=== PATIENT | female | born 1940 | race Caucasian/White ===

== ENCOUNTER 2023-03-05 22:57 | Inpatient (IN) | payer BC ==
[~2023-03-05 22:57] MED LIST: SIMV-8 PO
[2023-03-06 01:03] VITALS: BP 136/70
[2023-03-06] MEDS ORDERED: MORPHINE SULFATE INJ 2 MG/ml SYRG IV PRN (01:15)
[2023-03-06] MEDS ORDERED: DOCUSATE SOD 100 MG CAP PO PRN (01:15)
[2023-03-06] MEDS ORDERED: ONDANSETRON HCL 4 MG/2 ML VIAL IV PRN (01:15)
[2023-03-06] MEDS ORDERED: ATORVASTATIN 20 MG TAB PO ONE (01:15)
[2023-03-06] MEDS ORDERED: NITROGLYCERIN 0.4 MG SL TAB SL PRN (01:15)
[2023-03-06] MEDS ORDERED: IBUPROFEN 600 MG TAB PO ONE (01:15)
[2023-03-06] MEDS ORDERED: LABETALOL HCL 5 MG/ML 4ML SYRINGE IV PRN (01:45)
[2023-03-06 04:35] VITALS: BP 161/74
[2023-03-06 06:16] LABS: Basophils # (auto) 0 10 ^3/uL (0-0.2); Basophils % (auto) 0.7 % (0.0-2.0); Eosinophils # (auto) 0.2 10 ^3/uL (0-0.8); Eosinophils % (auto) 4.2 % (0.0-7.0); Hematocrit 33.9 % (36.0-46.0); Hemoglobin 11.9 g/dL (12.2-16.2); Lymphocytes # (auto) 1.3 10 ^3/uL (0.4-5.4); Lymphocytes % (auto) 22.9 % (10.0-50.0); Mean Corpuscular Hemoglobin 33.7 pg (28.0-32.0); Mean Corpuscular Hgb Conc. 35.2 g/dL (32.0-36.0); Mean Corpuscular Volume 95.7 fL (80.0-100.0); Monocytes # (auto) 0.7 10 ^3/uL (0-1.3); Monocytes % (auto) 11.7 % (0.0-12.0); Neutrophils # (auto) 3.4 10 ^3/uL (1.6-8.6); Neutrophils % (auto) 60.5 % (37.0-80.0); Nucleated Red Blood Cells % 0.1 %; Red Blood Cells 3.54 10^6/uL (4.0-5.20); Red Cell Distribution Width 13.6 % (11.8-14.3); White Blood Cell 5.6 10^3/uL (4.4-10.8)
[2023-03-06 06:35] LABS: BUN/Creatinine Ratio 26.2 (10.0-20.0); Calcium 8.8 mg/dL (8.5-10.1); Potassium 3.5 mmol/L (3.5-5.1)
[2023-03-06 08:30] VITALS: BP 146/72
[2023-03-06] MEDS ORDERED: ASPirin 81 mg TAB PO SCH (10:00)
[2023-03-06] MEDS: ACETAMINOPHEN 325 MG TAB PO PRN ×2 (10:11→21:10)
[2023-03-06 12:30] VITALS: BP 144/70
[2023-03-06 17:18] VITALS: BP 150/73
[2023-03-06 18:28] LABS: Free T3 3.71 pg/mL (2.3-4.2)
[2023-03-06 18:29] LABS: Free T4 (Free Thyroxine) 1.33 ng/dL (0.89-1.76)
[2023-03-06] MEDS ORDERED: CYCL0.05 EACHEYE (19:19)
[2023-03-06] MEDS ORDERED: DORZ1SOL6 OP (19:19)
[2023-03-06 21:25] LABS: Urine Bacteria NONE SEEN /hpf (None Seen); Urine Blood Negative /uL (Negative); Urine Specific Gravity 1.023 (1.001-1.035); Urine WBC 2 /hpf (0 - 5)
[2023-03-06] MEDS ORDERED: ATORVASTATIN 20 MG TAB PO SCH (22:00)
[2023-03-06 23:26] VITALS: BP 127/73
[2023-03-07 04:59] VITALS: BP 138/79
[2023-03-07 09:00] VITALS: BP 129/68
[2023-03-07 13:06] VITALS: BP 154/60
[2023-03-07 15:34] VITALS: BP 129/68
== END 2023-03-07 16:35 | disposition home or self-care (01) | DRG 312 ==
LOC: CENTRAL 23:40 → TELE-CENTR 03-06 02:10
PROVIDERS: ADMIT Internal Medicine; ATTEND Hospitalist
DX: R55 Syncope and collapse (principal); M48.54XA Collapsed vertebra, not elsewhere classified, thoracic region, initial encounter for fracture; D64.9 Anemia, unspecified; E78.5 Hyperlipidemia, unspecified; R00.1 Bradycardia, unspecified; F07.81 Postconcussional syndrome; R29.810 Facial weakness; Z79.899 Other long term (current) drug therapy; Z82.49 Family history of ischemic heart disease and other diseases of the circulatory system; Z86.73 Personal history of transient ischemic attack (TIA), and cerebral infarction without residual deficits; Z80.3 Family history of malignant neoplasm of breast
CPT/HCPCS: 36415; 70551; 73700; 80048; 81001; 84439; 84443; 84481; 85025; 87081; 87086; 93306; 93886; 95819; 97110; 97116; 97163; 97530; G0378

== ENCOUNTER 2023-05-25 12:24 | Emergency (ER) | payer BC ==
[~2023-05-25] VITALS: Ht 152.4 cm; Wt 49.7 kg
[~2023-05-25 12:24] MED LIST changes: +CYCL0.05 EACHEYE; +DORZ1SOL6 OP; -SIMV-8 PO; +SIMV20TA20 PO
[2023-05-25 14:45] VITALS: BP 129/70
[2023-05-25 15:35] LABS: Basophils # (auto) 0.1 10 ^3/uL (0-0.2); Basophils % (auto) 1.5 % (0.0-2.0); Eosinophils # (auto) 0.3 10 ^3/uL (0-0.8); Eosinophils % (auto) 6.8 % (0.0-7.0); Hematocrit 39.1 % (36.0-46.0); Hemoglobin 13.2 g/dL (12.2-16.2); Lymphocytes # (auto) 1.5 10 ^3/uL (0.4-5.4); Lymphocytes % (auto) 29.6 % (10.0-50.0); Mean Corpuscular Hemoglobin 32.6 pg (28.0-32.0); Mean Corpuscular Hgb Conc. 33.7 g/dL (32.0-36.0); Mean Corpuscular Volume 96.8 fL (80.0-100.0); Monocytes # (auto) 0.7 10 ^3/uL (0-1.3); Monocytes % (auto) 13.1 % (0.0-12.0); Neutrophils # (auto) 2.5 10 ^3/uL (1.6-8.6); Nucleated Red Blood Cells % 0.1 %; Red Blood Cells 4.04 10^6/uL (4.0-5.20); Red Cell Distribution Width 13.8 % (11.8-14.3); White Blood Cell 5.1 10^3/uL (4.4-10.8)
[2023-05-25 15:54] LABS: Albumin 4.1 g/dL (3.4-5.0); Calcium 10.3 mg/dL (8.5-10.1); Potassium 4.8 mmol/L (3.5-5.1)
[2023-05-25 15:57] LABS: BUN/Creatinine Ratio 20.9 (10.0-20.0); Bilirubin, Total 0.3 mg/dL (0.2-1.0); Total Protein 7.8 g/dL (6.4-8.2)
[2023-05-25 15:59] LABS: Urine Bacteria NONE SEEN /hpf (None Seen); Urine Blood Negative /uL (Negative); Urine Specific Gravity 1.006 (1.001-1.035); Urine WBC 2 /hpf (0 - 5)
[2023-05-25] MEDS ORDERED: DexAMETHasone SOD PHOS 10MG/1ML VIAL INJ IM ONE (16:30)
[2023-05-25] MEDS ORDERED: CEPH500C PO (17:05)
[2023-05-25] MEDS ORDERED: TRIA0.02 TOP (17:05)
[2023-05-25] MEDS ORDERED: METH4PAK PO (17:05)
== END 2023-05-25 17:17 | disposition home or self-care (01) ==
LOC: ER 12:24
DX: T78.40XA Allergy, unspecified, initial encounter (principal); K12.1 Other forms of stomatitis; Z79.899 Other long term (current) drug therapy; X58.XXXA Exposure to other specified factors, initial encounter
CPT/HCPCS: 36415; 80053; 81001; 85025; 96372; 99283; J1100

== ENCOUNTER 2023-10-27 12:24 | Emergency (ER) | payer BC ==
[~2023-10-27] VITALS: Ht 152.4 cm; Wt 51.3 kg
[~2023-10-27 12:24] MED LIST changes: +CEPH500C PO; +METH4PAK PO; +TRIA0.02 TOP
[2023-10-27 15:09] VITALS: BP 144/88; PULSE 78; RESP 16; TEMP 97.6; O2SAT 99
[2023-10-27] MEDS ORDERED: methylPREDNISolone SOD SUCC 125 MG/2 ML VL IM ONE (16:00)
[2023-10-27] MEDS ORDERED: methylPREDNISolone SOD SUCC 125 MG/2 ML VL ONE (16:02)
[2023-10-27] MEDS ORDERED: ACET-1080 PO (16:58)
[2023-10-27] MEDS ORDERED: PRED20TA2 PO (16:58)
== END 2023-10-27 17:06 | disposition home or self-care (01) ==
LOC: ER 12:24
DX: G89.29 Other chronic pain (principal); R51.9 Headache, unspecified; R21 Rash and other nonspecific skin eruption; Z79.899 Other long term (current) drug therapy
CPT/HCPCS: 70450; 96372; 99285; J2930